=== PATIENT | male | born 1990 | race Caucasian/White ===

== ENCOUNTER 2018-07-24 22:55 | Emergency (ER) | payer OTHER ==
[2018-07-24 23:01] VITALS: BP 134/80; PULSE 62; TEMP 98.3; BMI 27.4
[2018-07-24] MEDS ORDERED: TETRACAINE 0.5% OPHTH SOLN 2 ML BOTTLE ONE (23:26)
--- NOTE | 2018-07-24 23:32 | PDOC ---
History of Present Illness - General Chief Complaint: Eye Problem Stated Complaint: Eye Problem Time Seen by Provider: 07/24/18 23:10 - History of Present Illness Initial Comments: 07/24/18 23:31 Patient is a 27 year old male with no significant past medical history presented with left eye pain and redness for 1 day. Patient works as a stratton and cuts metal objects. Patient reports wearing protective goggles all the time, but noted having left eye itchiness that started a day prior and subsequently rubbed his eye. The next day, patient noted left eye redness and pain. He applied saline eye drops which did not provide any relief. Patient denies changes in vision, headaches, fever, chills, abnormal tearing or blinking. Patient denies chest pain, SOB, palpitations, abdominal pain or urinary symptoms. Past History - Past Medical History Allergies/Adverse Reactions: Allergies Allergy/AdvReac Type Severity Reaction Status Date / Time No Known Allergies Allergy Verified 07/24/18 22:58 Home Medications: Ambulatory Orders NK [No Known Home Medication] 07/24/18 COPD: No - Suicide/Smoking/Psychosocial Hx Smoking History: Never smoked Review of Systems - Review of Systems Constitutional: No: Chills, Fever, Malaise, Weakness HEENTM: Yes: Eye Pain. No: Blurred Vision, Tearing, Double Vision, Ear Discharge, Nose Congestion, Throat Swelling, Difficulty Swallowing Respiratory: No: Cough, Shortness of Breath Cardiac (ROS): No: Chest Pain, Palpitations ABD/GI: No: Abdominal Distended, Constipated, Diarrhea, Nausea, Vomiting : No: Burning, Dysuria *Physical Exam - Vital Signs Last Vital Signs Temp Pulse Resp BP Pulse Ox 98.3 F 62 18 134/80 99 07/24/18 22:59 07/24/18 22:59 07/24/18 22:59 07/24/18 22:59 07/24/18 22:59 - Physical Exam Comments: 07/25/18 03:19 General:awake, alert, oriented, not in acute distress Head: no signs of head trauma HEENT: PERRLA, EOMI, sclerae anicteric, no nasal discharge, non-erythematous oropharynx, moist mucous membranes Left eye: +erythematous conjunctivae, +pinpoint black object at the medial side of the iris, +2mm abrasion on medial conjunctiva Neck: soft, supple, trachea midline Lungs: clear to auscultation bilaterally Heart: regular rate and rhyth, normal S1/S2, no m,r,g Abdomen: soft, nontender, nondistended, NABS Ext: +2 pulses, no peripheral edema Moderate Sedation - Procedure Monitoring Vital Signs: Procedure Monitoring Vital Signs Temperature 98.3 F 07/24/18 22:59 Pulse Rate 62 07/24/18 22:59 Respiratory Rate 18 07/24/18 22:59 Blood Pressure 134/80 07/24/18 22:59 O2 Sat by Pulse Oximetry (%) 99 07/24/18 22:59 Medical Decision Making - Medical Decision Making 07/25/18 00:56 Patient is a 27 year old male with no significant past medical history presented with left eye pain and redness for 1 day. DDx include but not limited to foreign object on left eye, corneal abrasion, conjunctivitis Flushed left eye with normal saline and swabbed lightly in attempt to take foreign object out, but unsuccessful. Called [facility] [employer] (Dr. Bhardwaj) who will see patient in the morning. Erythromycin ointment applied prior to dispo. *DC/Admit/Observation/Transfer Diagnosis at time of Disposition: Foreign body, eye Qualifiers: Encounter type: initial encounter Laterality: left Qualified Code(s): T15.92XA - Foreign body on external eye, part unspecified, left eye, initial encounter - Discharge Dispostion Disposition: HOME Condition at time of disposition: Stable Decision to Admit order: No - Referrals Referrals: Adryan Bhardwaj MD [Staff Physician] - - Patient Instructions Printed Discharge Instructions: DI for Foreign Body in the Eye Additional Instructions: You were seen because your left eye was red and painful. You will be given antibiotic ointment which you will apply on the left eye as instructed. Please follow-up with the eye doctor (Dr. Adryan Bhardwaj) today (07/25/18) at 8: 30am. Call 911 or go to the ED if with any worsening eye pain, eye redness, blurring of vision, headaches, fever, chills or any new concerns noted. Print Language: LATVIAN - Post Discharge Activity
[2018-07-24] MEDS ORDERED: TETRACAINE 0.5% OPHTH SOLN 2 ML BOTTLE OS ONE (23:38)
--- NOTE | 2018-07-25 | PDOC ---
Attending Attestation - Resident Resident Name: Carmen Staley - ED Attending Attestation I have performed the following: I have examined & evaluated the patient, The case was reviewed & discussed with the resident, I agree w/resident's findings & plan, Exceptions are as noted - HPI HPI: 07/24/18 23:59 27 yo chayito was grinding wood and sustained a foreign body in his eye - Physicial Exam PE: 07/25/18 00:44 eyes shira eomi visual acuity 20/20 fluorescein placed in the eye and revealed a 2 mm corneal abrasion there is a small foreign body seen but we were unable to remove it with sterile cotton swab 07/25/18 00:53 head ncat neck supple cvs [id number] abd flat,no tenderness ext no deformities skin warm and dry neuro axox3,ambulatory,no gross focal neuro deficits - Medical Decision Making 07/25/18 00:54 erythromycin ointment placed on left eye ophthalmology was contacted and Dr Adryan Bhardwaj will see the patent later this morning at 8:30 in his [place] office imp foreign body/ corneal abrasion
[2018-07-25] MEDS ORDERED: FLUORESCEIN NA 1 EA STRIP ONE (00:09)
[2018-07-25] MEDS ORDERED: FLUORESCEIN NA 1 EA STRIP OD ONE (00:15)
[2018-07-25] MEDS ORDERED: FLUOROURACIL 2% TOPICAL SOLUTION 10 ML BOTTLE TP SCH (00:15)
[2018-07-25] MEDS ORDERED: ERYTHROMYCIN 0.5% OPHTHALMIC OINTMENT 3.5 GM TUBE OS ONE (00:26)
[2018-07-25] MEDS ORDERED: ERYTHROMYCIN 0.5% OPHTHALMIC OINTMENT 3.5 GM TUBE ONE (00:28)
== END 2018-07-25 00:53 | disposition home or self-care (01) ==
LOC: JER 22:55
DX: T15.92XA Foreign body on external eye, part unspecified, left eye, initial encounter (principal); X58.XXXA Exposure to other specified factors, initial encounter; Y93.89 Activity, other specified; Y92.89 Other specified places as the place of occurrence of the external cause
CPT/HCPCS: 99281-25